=== PATIENT | male | born 1970 | race Caucasian/White ===

== ENCOUNTER 2022-04-22 17:01 | Emergency (ER) | payer SELFPAY ==
[~2022-04-22] VITALS: Ht 177.8 cm; Wt 83.9 kg
[2022-04-22] MEDS ORDERED: MORPHINE SULFATE INJ 4 MG/ML DISP.SYRIN ONE (18:10)
[2022-04-22] MEDS ORDERED: MORPHINE SULFATE INJ 2 MG/ML DISP.SYRIN IV ONE (18:30)
[2022-04-22] MEDS ORDERED: IV NS 0.9% 1,000 ML IV ONE (18:30)
[2022-04-22] MEDS ORDERED: KETAMINE HCL (500MG/10ML) 50 MG/ML VIAL IV ONE (20:00)
[2022-04-22] MEDS ORDERED: KETAMINE HCL (500MG/10ML) 50 MG/ML VIAL ONE (20:02)
--- NOTE | 2022-04-22 20:12 | NUR ---
ER MD, RN, EMT , RT AT BEDSIDE FOR MODERATE SEDATION
--- NOTE | 2022-04-22 20:19 | NUR ---
LEFT ARM REDUCED. VSS. PATIENT IN NO ACUTE DISTRESS.
--- NOTE | 2022-04-22 20:21 | NUR ---
RAD AT BEDSIDE
[2022-04-22] MEDS ORDERED: ONDANSETRON HCL/PF - ER 4 MG/2 ML VIAL IV ONE (20:30)
[2022-04-22] MEDS ORDERED: ONDANSETRON HCL/PF 4 MG/2 ML VIAL ONE (20:32)
[2022-04-22] MEDS ORDERED: KETOROLAC TROMETHAMINE INJ 30 MG/ML VIAL IV ONE (21:00)
[2022-04-22] MEDS ORDERED: KETOROLAC TROMETHAMINE INJ 30 MG/ML VIAL ONE (21:12)
[2022-04-22] MEDS ORDERED: HYDR-3980 PO (21:34)
[2022-04-22] MEDS ORDERED: IBUP-1953 PO (21:34)
--- NOTE | 2022-04-22 22:44 | NUR ---
IV removed. Catheter intact and site benign. Pressure and 4x4 applied to site. No bleeding noted.Patient discharged to home in stable condition. Written and verbal after care instructions given. Patient verbalizes understanding of instruction.
[2022-04-22 22:45] VITALS: BP 136/70
[2022-04-23] MEDS ORDERED: HYDR-3980 PO (01:20)
== END 2022-04-22 22:45 | disposition home or self-care (01) ==
LOC: ER 17:02
DX: S52.512A Displaced fracture of left radial styloid process, initial encounter for closed fracture (principal); Z79.899 Other long term (current) drug therapy; V29.99XA Rider (driver) (passenger) of other motorcycle injured in unspecified traffic accident, initial encounter; Y93.89 Activity, other specified; Y92.89 Other specified places as the place of occurrence of the external cause; Y99.8 Other external cause status
CPT/HCPCS: 99285; 96374; 96375; 96361; 29125; 73090; 73130; 73100; J3490; J2270; J1885; J2405; J7030; J7040